=== PATIENT | male | born 1995 | race Caucasian/White ===

== ENCOUNTER 2020-04-19 18:05 | Emergency (ER) | payer MEDICARE, MEDICAID ==
--- NOTE | 2020-04-19 18:56 | ER Document Report ---
ED Medical Screen (RME) - General Chief Complaint: Psych Problem Stated Complaint: PSYCH EVAL Time Seen by Provider: 04/19/20 18:48 Mode of Arrival: Ambulatory Information source: Patient, Parent Notes: 25-year-old male presented to ED for agitation and gression towards his father when he tried to give him his Abilify IM today. He states he did not want it and became very aggressive. Mother states she is she is been trying to get him into a long term which is what he wants but he was not helpful to fill out the papers. She states that they were supposed to do that before he was discharged but everything came down and he was discharged without anything being set up properly. She states she cannot get anything done and nobody will help her to get the paperwork done in order to get him into a long term. She states that they cannot keep going at home when he is very aggressive at times. I have greeted and performed a rapid initial assessment of this patient. A comprehensive ED assessment and evaluation of the patient, analysis of test results and completion of medical decision making process will be conducted by an additional ED providers. - Related Data Allergies/Adverse Reactions: No Known Allergies Allergy (Unverified 04/19/20 18:54) Physical Exam - Vital signs Vitals: Temp Pulse Resp BP Pulse Ox 99.4 F 110 H 16 112/69 97 04/19/20 18:15 04/19/20 18:15 04/19/20 18:15 04/19/20 18:15 04/19/20 18:15 Course - Vital Signs Vital signs: Temp Pulse Resp BP Pulse Ox 99.4 F 110 H 16 112/69 97 04/19/20 18:15 04/19/20 18:15 04/19/20 18:15 04/19/20 18:15 04/19/20 18:15
--- NOTE | 2020-04-19 19:31 | PSYCHOLOGICAL NOTE ---
Psych Note - Psych Note Date seen by psych provider: 04/19/20 Psych Note: Medication recommendations per [facility]'s contracted psychiatrist DR Janee BATRES are as follows: Haldol 5mg IM once Benadryl 50mg IM once [id number] IM once Patient has been placed on 24 petition for evaluation; paperwork has been signed and placed in his chart.
[2020-04-19] MEDS ORDERED: HALOPERIDOL LACTATE INJ 5 MG/1 ML VIAL IM ONE (19:33)
[2020-04-19] MEDS ORDERED: DIPHENHYDRAMINE HCL 50 MG/ML VIAL IM ONE (19:33)
[2020-04-19] MEDS ORDERED: LORAZEPAM INJ 2 MG/1 ML VIAL IM ONE (19:33)
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
[2020-04-19] MEDS ORDERED: IBUPROFEN 600 MG TABLET PO ONE (20:25)
[2020-04-19 21:08] LABS: ABSOLUTE EOSINOPHILS # (AUTO) 0.1 10^3/uL (0.0-0.6); ABSOLUTE LYMPHOCYTES (AUTO) 1.7 10^3/uL (0.5-4.7); ABSOLUTE MONOCYTES (AUTO) 0.6 10^3/uL (0.1-1.4); ABSOLUTE NEUT (AUTO) 5.7 10^3/uL (1.7-8.2); BASOPHILS % (AUTO) 0.6 % (0-2); EOSINOPHILS % (AUTO) 1.2 % (0-6); HEMATOCRIT 39.4 % (37.9-51.0); HEMOGLOBIN 13.1 g/dL (13.5-17.0); LYMPHOCYTES % (AUTO) 21.3 % (13-45); MEAN CORPUSCULAR HEMOGLOBIN 31.1 pg (27.0-33.4); MEAN CORPUSCULAR HGB CONC 33.3 g/dL (32.0-36.0); MEAN CORPUSCULAR VOLUME 94 fl (80-97); PLATELET COUNT 161 10^3/uL (150-450); RED BLOOD COUNT 4.21 10^6/uL (4.35-5.55); RED CELL DISTRIBUTION WIDTH 16.3 % (11.5-14.0); SEGMENTED NEUTROPHILS % (AUTO) 69.9 % (42-78); TOTAL CELLS COUNTED % (AUTO) 100 %; WHITE BLOOD COUNT 8.1 10^3/uL (4.0-10.5)
[2020-04-19 21:25] LABS: ALBUMIN 4.5 g/dL (3.5-5.0); ALKALINE PHOSPHATASE 58 U/L (38-126); ANION GAP 10 (5-19); ASPARTATE AMINO TRANSFERASE 25 U/L (17-59); BILIRUBIN,TOTAL 0.5 mg/dL (0.2-1.3); BLOOD UREA NITROGEN 21 mg/dL (7-20); CALCIUM 9.6 mg/dL (8.4-10.2); CARBON DIOXIDE 27 mmol/L (22-30); CHLORIDE 104 mmol/L (98-107); GLUCOSE 86 mg/dL (75-110); TOTAL PROTEIN 7.4 g/dL (6.3-8.2)
[2020-04-19 21:26] LABS: ACETAMINOPHEN < 10 ug/mL (10-30); ALCOHOL < 10 mg/dL (NONE DETECTED); SALICYLATE < 1.0 mg/dL (2.0-20.0)
--- NOTE | 2020-04-19 22:01 | RADIOLOGY REPORT (SQ) ---
EXAM DESCRIPTION: XR ABDOMEN SUPINE AND ERECT WITH CHEST (ABD ACUTE SERIES) COMPLETED DATE/TME: 04/19/2020 20:13 CLINICAL HISTORY: 25 years, Male, abd pain, vomiting, decreased BM COMPARISON: None. NUMBER OF VIEWS: 3 TECHNIQUE: Upright chest with supine and erect views of the abdomen LIMITATIONS: None. FINDINGS: Heart size is normal. Lungs are clear. No pneumothorax. No free air under the hemidiaphragms. Abundant stool in the colon. A few nondilated small bowel air-fluid levels may reflect mild ileus. IMPRESSION: Negative chest. Probable mild ileus. Abundant stool in the colon copyright 2011 [employer]- All Rights Reserved
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
--- NOTE | 2020-04-19 22:04 | RADIOLOGY REPORT (SQ) ---
EXAM DESCRIPTION: XR SACRUM COCCYX 2 OR MORE VIEWS COMPLETED DATE/TME: 04/19/2020 20:25 CLINICAL HISTORY: 25 years, Male, coccygeal pain COMPARISON: None. NUMBER OF VIEWS: 3 TECHNIQUE: 3 views of the sacrum/coccyx LIMITATIONS: None. FINDINGS: Slight posterior tilting of the coccyx is likely developmental in nature. No other evidence for sacrococcygeal abnormality. The sacroiliac joints are preserved IMPRESSION: Slight posterior tilting of the coccyx, likely developmental. Remainder is unremarkable copyright 2011 [employer]- All Rights Reserved
[2020-04-19] MEDS ORDERED: MAGNESIUM CITRATE 296 ML BOTTLE PO ONE (23:12)
[2020-04-19] MEDS: CLONIDINE HCL 0.1 MG TABLET PO SCH (23:39)
[2020-04-20] MEDS: CLONIDINE HCL 0.1 MG TABLET PO SCH ×2 (00:12→21:13)
[2020-04-20 07:12] LABS: APPEARANCE,URINE SLIGHTLY-CLOUDY; BILIRUBIN,URINE NEGATIVE (NEGATIVE); COLOR,URINE YELLOW; GLUCOSE, URINE NEGATIVE (NEGATIVE); KETONES,URINE NEGATIVE (NEGATIVE); LEUKOCYTE ESTERASE,URINE NEGATIVE (NEGATIVE); NITRITE,URINE NEGATIVE (NEGATIVE); PROTEIN,URINE 30 mg/dL (NEGATIVE); URINE SPECIFIC GRAVITY 1.018; UROBILINOGEN,URINE NEGATIVE mg/dL (<2.0)
[2020-04-20 07:24] LABS: URINE AMPHETAMINES SCREEN NEGATIVE; URINE BARBITURATES SCREEN NEGATIVE; URINE BENZODIAZEPINES SCREEN NEGATIVE; URINE COCAINE SCREEN NEGATIVE; URINE MARIJUANA (THC) SCREEN NEGATIVE; URINE METHADONE SCREEN NEGATIVE; URINE PHENCYCLIDINE SCREEN NEGATIVE
[2020-04-20] MEDS ORDERED: MAGNESIUM CITRATE 296 ML BOTTLE PO ONE (08:00)
--- NOTE | 2020-04-20 09:33 | EKG REPORT ---
SEVERITY:- NORMAL ECG - SINUS RHYTHM : Confirmed by: Acacia Thomas MD 20-Apr-2020 09:32:39
--- NOTE | 2020-04-20 15:15 | ER Document Report ---
Doctor's Note Notes: 04/20/20 15:12 Patient was seen and evaluated he was cooperative. Allowed me to examine his abdomen which is soft, nontender, nondistended with positive bowel sounds in all 4 quadrants. No guarding, no rebound, patient would allow me to palpate his back down to the sacrum without initiating any pain. Full range of motion. No deformities noted. No abscesses or cysts palpated. Patient states his pain is more in the rectal area but he refused to allow me to examine his rectal area. Offers no other concerns or complaints at this time. States he was given mag citrate earlier today and was able to have a small bowel movement afterwards.
[2020-04-20] MEDS ORDERED: FLUPHENAZINE DECANOATE INJ 125 MG/5 ML VIAL IM ONE (19:45)
[2020-04-20] MEDS ORDERED: BENZTROPINE MESYLATE INJ 2 MG/2 ML AMPULE IM ONE (20:00)
[2020-04-21] MEDS ORDERED: FLUPHENAZINE DECANOATE INJ 125 MG/5 ML VIAL IM ONE (00:12)
--- NOTE | 2020-04-21 08:37 | ER Document Report ---
Doctor's Note Notes: 04/20/20 23:00 According to the ELECTRIC CELL TENDER, the patient is resting comfortably after receiving the Prolixin. We will hold off on giving him the 25 mg of Prolixin.
[2020-04-21] MEDS ORDERED: FLUPHENAZINE DECANOATE INJ 125 MG/5 ML VIAL IM SCH (10:00)
--- NOTE | 2020-04-21 11:28 | ER Document Report ---
Doctor's Note Notes: 04/21/20 11:00 Spoke with the patient. I reviewed the chart. Patient does not know why he is in the emergency department. Patient has no other complaints at this time. Awaiting psychiatric evaluation today
[2020-04-21 16:10] VITALS: BP 109/66
[2020-04-21] MEDS ORDERED: FLUPHENAZINE HCL 2.5 MG TABLET PO SCH (18:00)
--- NOTE | 2020-04-26 17:07 | PSYCHOLOGICAL NOTE ---
Psych Note - Psych Note Date seen by psych provider: 04/22/20 Time seen by psych provider: 14:19 - 1419, [id number]. Mother collateral [phone] [id number]. Psych Note: Presenting Problem: Patient is a 25 year old male who presented to the [facility] ED on the evening of 04/19/2020 via POV/mother for psychosis. He had been scheduled for his Abililfy injection but was agitated and aggressive with parents. He was held overnight to start a new medication regimen. Observed patient standing in his doorway, at times pacing his room. He stated he wanted to go home. Patient identified he would take medication at home and said he preferred the shot. He was made aware he did get a couple shots and the rest he would take at home by mouth. He stated he understood. Patient was alert and oriented to self, person, place, time and situation. Mood was euthymic with somewhat of a guarded affect as evidenced by being hyper vigilant to his surroundings and what was being asked. He denied current SI/HI and these were never presenting concerns. Patient did not appear to be responding to internal stimuli as evidenced by fair eye contact, answering questions appropriately when addressed and ability to express self/wants/needs. Thought processes were more linear. Conversational speech was within normal limits for rate, tone and prosody. Intellectual abilities are estimated to be average. Insight, judgment and impulse control were fair as evidenced by discussion his preference to get injection medications. Collateral: From [id number] obtained collateral from patient's mother Priscilla Tran via phone (listed as EC). She stated patient did not have monique linkage from [facility]. She identified they are closer to [facility] than [place] and prefer [facility]. She then mentioned they have been to [facility], [facility] and other outpatient agencies in [facility] who have said they do not specialize in working with his diagnosis of Asperger's. Mother identified she spoke to Dr. Eusebio Heredia's occupational health and safety officer (information yesterday's clinician provided) and psychological testing is scheduled for July 2020 but if there are cancelations they will get sooner. Contacted [facility] in [facility] (as this was one of the only agencies patient had not been to yet). Scheduled medication management with Dr. Larson on 07/12/2020 at 1300 (this was soonest available). Faxed them a patient referral form. They stated they could do medication but not therapy sine patient is Medicaid and Medicare. Called [facility] [place] ([phone]) for therapy but [place] stated they are out of network and do fee based services and [facility] is taking on new patients. Clinical Presentation: Psychosis Agitation Aggression Diagnosis: Asperger's Syndrome by History per mother R/O Schizoaffective Disorder Medication recommendations are to provide prescriptions for medications administered while in ED: Prolixin 2.5MG twice a day for mood stabilization/psychosis Cogentin 1MG daily to curb tremor side effects often associated with antipsychotic medications Impression/Plan: Patient is cleared from acute psychiatric services. Recommendation to [facility] 24 Hour Petition for Evaluation. Patient denied current SI/HI, these were never presenting concerns and psychosis appeared more managed given patient's ability to follow directions, engage and answer questions. He was not agitated or aggressive with medical staff. He stated he knows he needs medication and prefers injections. Coordinated discharge plan with patient's mother. Mother already contacted Dr. Eusebio Heredia's office for psychological testing which is scheduled for July 2020 or sooner if there is a cancelation. Arranged medication management follow up with [facility] in [facility] for 07/12/2020 at 1300, provided contact information and appointment date and time. Also provided contact information for [facility] for therapy but since it is a fee based service wanted parents and patient to make decision to schedule appointment. Also provided outpatient resources for [place] and [facility], explained these are entities thay may be able to help with linkage to services. Consulted with Dr. Kay regarding the management and care of patient. ED Sudheer lundy in agreement with recommendations.
== END 2020-04-21 16:55 | disposition home or self-care (01) ==
LOC: ER 18:05
DX: M53.3 Sacrococcygeal disorders, not elsewhere classified (principal); F29 Unspecified psychosis not due to a substance or known physiological condition; F91.1 Conduct disorder, childhood-onset type; K59.00 Constipation, unspecified
CPT/HCPCS: 93005; 99285; 96372; 36415; 80307 ×4; 83690; 85025; 80053; 81001; 74022; 72220; 72110; 93010; J0515; J2680 ×2; A9270 ×3; J1200; J1630; J2060; J3490